=== PATIENT | male | born 1935 ===

== ENCOUNTER 2016-12-14 07:42 | Day surgery (SDC) | payer MEDICARE ==
[2016-12-14 08:08] VITALS: BMI 27.8
[2016-12-14] MEDS ORDERED: Propofol 10 mg/ml Inj (20 ML) ONE (09:14)
--- NOTE | 2016-12-14 09:14 | CP.SDSHP ---
Same Day Surgery H & P - History Proposed Procedure: COLONSCOPY Pre-Op Diagnosis: SEE NOTES - Previous Medical/Surgical History Cardiac: Hypertension Endocrine/Metabolic: Diabetes, Other Misc: Other Pain: 2.Mild Pain - Allergies Allergies: Allergies No Known Allergies Allergy (Verified 09/10/14 07:57) - Physical Exam General Appearance: N Vital Signs: Vital Signs 12/14/16 12/14/16 08:24 09:09 Temperature 97.6 F 97.6 F Pulse Rate 73 73 Respiratory 16 16 Rate Blood Pressure 132/66 132/66 O2 Sat by Pulse 97 100 Oximetry Mental Status: Alert & Oriented x3 Neuro: WNL Heart: Other Lungs: WNL GI: Other - {Optional Preform as Required} Breast: WNL Abdomen: Other Rectal: Other Integument: WNL : WNL Ortho: WNL ENT: WNL - Impression Pt. Evaluated Today:Candidate for Anesthesia & Procedure: Yes - Date & Time Time: 09:15 Short Stay Discharge - Short Stay Discharge Admitting Diagnosis/Reason for Visit: HX COLON CANCER Disposition: HOME/ ROUTINE
[2016-12-14] MEDS ORDERED: Belladonna-Phenobarbital PO ONE (09:50)
[2016-12-14 09:53] VITALS: TEMP 97
[2016-12-14 10:07] VITALS: O2SAT 99
[2016-12-14 10:41] VITALS: PULSE 60; RESP 14
[2016-12-14 10:45] VITALS: BP 129/69
== END 2016-12-14 10:40 | disposition home or self-care (01) ==
LOC: C.ENDO 07:42
PROVIDERS: ATTEND Specialist
DX: K52.9 Noninfective gastroenteritis and colitis, unspecified (principal); K64.8 Other hemorrhoids
CPT/HCPCS: 45380; 82948; 88305; J2704

== ENCOUNTER 2016-12-16 06:59 | Observation (INO) | payer MEDICARE ==
[2016-12-16 06:59] VITALS: BMI 27.8
--- NOTE | 2016-12-16 07:48 | C.PDOC ---
History Of Present Illness 81 y/o male presents to the ED for evaluation of left side rib pain s/p slip and fall yesterday. Patient states he slipped on water, and fell in the bathroom yesterday, hitting the left side of his body against the tub. States that pain became worse over night, which prompted him to visit ED this morning. Notes that pain is worse with deep breathing. Otherwise, denies any head injury , LOC, headache, dizziness, nausea, vomiting, neck pain, back pain, or any other associated symptoms at this time. - HPI Time Seen by Provider: 12/16/16 07:13 Chief Complaint (Nursing): Rib Injury History Per: Patient History/Exam Limitations: no limitations Onset/Duration Of Symptoms: Days (1) Injury Occurred (Timing): Days Ago: (1) Location Of Injury: Left: Chest (left side rib) Recent travel outside of the [place] States: No Additional History Per: Patient - Fall Fall:Prior To Injury: Slipped Past Medical History Reviewed: Historical Data, Nursing Documentation, Vital Signs Vital Signs: Last Vital Signs Temp 99.0 F 12/16/16 11:15 Pulse 63 12/16/16 11:15 Resp 17 12/16/16 11:15 BP 157/88 H 12/16/16 11:15 Pulse Ox 94 L 12/16/16 11:15 - Medical History PMH: Colonic Polyps, HTN, Hypercholesterolemia, TIA (NO RESIDUAL WEAKNESS) Denies: Chronic Kidney Disease Surgical History: Endoscopy - [facility] Procedures CLOSED ENDOSCOPIC BIOPSY OF LARGE INTESTINE (09/10/14) Family History: States: Unknown Family Hx - Social History Hx Alcohol Use: No Hx Substance Use: No - Immunization History Hx Influenza Vaccination: Yes Hx Pneumococcal Vaccination: Yes Review Of Systems Except As Marked, All Systems Reviewed And Found Negative. Constitutional: Negative for: Fever, Chills Cardiovascular: Positive for: Chest Pain (left rib pain). Negative for: Palpitations, Light Headedness Respiratory: Positive for: Shortness of Breath. Negative for: Cough Gastrointestinal: Positive for: Abdominal Pain (left side). Negative for: Nausea, Vomiting, Diarrhea, Constipation Musculoskeletal: Negative for: Neck Pain, Back Pain Skin: Negative for: Rash, Bruising Neurological: Negative for: Weakness, Numbness, Headache, Dizziness Physical Exam - Physical Exam Appears: Non-toxic, No Acute Distress Skin: Normal Color, Warm, Dry Head: Atraumatic, Normacephalic, No Tenderness Eye(s): bilateral: Normal Inspection Oral Mucosa: Moist Neck: Normal, Normal ROM, No Midline Cervical Tenderness, Supple Chest: Symmetrical, No Deformity, Tenderness (bony left rib tenderness) Cardiovascular: Rhythm Regular, No Murmur Respiratory: Normal Breath Sounds, No Accessory Muscle Use, No Rales, No Rhonchi , No Wheezing Gastrointestinal/Abdominal: Soft, Tenderness (left side), No Guarding, No Rebound Back: Normal Inspection Extremity: Bilateral: Atraumatic, Normal ROM Neurological/Psych: Oriented x3, Normal Speech, Normal Cognition ED Course And Treatment - Laboratory Results Result Diagrams: 12/16/16 07:48 12/16/16 07:48 O2 Sat by Pulse Oximetry: 94 Progress Note: Blood work, left side ribs/chest x-ray ordered and reviewed. Chest, abd, pel CT ordered to rule out any intra-abdominal pathology. Patient was treated with Toradol. On re-eval, patient is resting comfortably. Reports some improvement of pain. Medical Decision Making Medical Decision Making: Cxray and L rib xray: "Unremarkable radiographs of the chest and left ribs. No left rib fracture." 11:12AM CT shows "Visualized portions of the inferior thyroid gland appear unremarkable. The mediastinal and hilar vascular structures appear within normal limits. The heart appears within normal limits of size. Coronary artery calcifications. Mild bilateral lower lobe atelectasis. Small left pleural effusion. No pneumothorax. No suspicious pulmonary nodules measuring greater than 5 mm. Hypoattenuation of the liver compatible with hepatic steatosis. The spleen, kidneys, pancreas, adrenal glands, and gallbladder appear unremarkable. Abdominal aortic aneurysm measuring in maximal dimension 3.3 cm (AP) by 3.4 cm ( transverse) by 5.8 cm (cc). Prominent dense peripheral thrombus within the aneurysm. Suspected 5 mm penetrating ulcer (series 2, image 78). Small hiatal hernia. The stomach is nondistended. The bowel loops appear within normal limits of caliber without evidence of intestinal obstruction. Anastomotic bowel suture material involving the rectosigmoid colon. There is no definite free air. The appendix is not identified. No secondary signs of acute appendicitis. The prostate gland measures approximately 4.0 x 4.7 cm. The urinary bladder appears unremarkable. Left posterior 9 and 10th rib fractures. " Called Dr. Reyna, covering for patient's PMD. Patient is a 81 with current O2 sat of 94 with multiple rib fractures and reporting persistent pain. Will transfer to med/sx observation for pain medication and incentive spirometry Disposition - Disposition Disposition: HOSPITALIZED Disposition Time: 11:14 Condition: FAIR - Clinical Impression Clinical Impression: Ribs, multiple fractures, Fall - Scribe Statement The provider has reviewed the documentation as recorded by the Scribe Scarlet Crespo All medical record entries made by the Matthewibluanne were at my direction and personally dictated by me. I have reviewed the chart and agree that the record accurately reflects my personal performance of the history, physical exam, medical decision making, and the department course for this patient. I have also personally directed, reviewed, and agree with the discharge instructions and disposition.
[2016-12-16 07:54] LABS: BASO # 0.1 K/uL (0.0-0.2); EOS # 0.1 K/uL (0.0-0.7); EOS % 0.7 % (0.0-4.0); HEMOGLOBIN 13.3 g/dL (12.0-18.0); LYMPH # 1.3 K/uL (1.0-4.3); LYMPH % 11.8 % (20.0-40.0); MEAN CELL VOLUME 94.2 fL (80.0-94.0); MEAN CORPUSCULAR HEMOGLOBIN 31.8 pg (27.0-31.0); MEAN CORPUSCULAR HGB CONC 33.8 g/dL (33.0-37.0); MEAN PLATELET VOLUME 7.7 fL (7.2-11.7); MONO # 1.1 K/uL (0.0-0.8); NEUT # 8.3 K/uL (1.8-7.0); NEUT % 76.5 % (50.0-75.0); RBC 4.2 Mil/uL (4.40-5.90); RED CELL DISTRIBUTION WIDTH 13.1 % (11.5-14.5); WHITE BLOOD COUNT 10.9 K/uL (4.8-10.8)
--- NOTE | 2016-12-16 08:25 | RAD ---
PROCEDURE: Radiographs of the Chest and Left Ribs. HISTORY: fall with left bony rib pain COMPARISON: None available. TECHNIQUE: Frontal radiograph of the chest and multiple oblique radiographs of the left ribs were obtained. FINDINGS: LEFT RIBS: No fracture or focal lesion visualized. LUNGS: Clear. PLEURA: No pneumothorax or pleural fluid. CARDIOVASCULAR: Normal sized heart. No pulmonary vascular congestion. OTHER FINDINGS: None. IMPRESSION: Unremarkable radiographs of the chest and left ribs. No left rib fracture.
[2016-12-16 08:29] LABS: ALBUMIN 4.2 g/dL (3.5-5.0)
[2016-12-16 08:32] LABS: ALB/GLOB RATIO 1.1 (1.0-2.1); AST/SGOT 38 U/L (17-59); BLOOD UREA NITROGEN 23 mg/dL (9-20); CALCIUM 8.9 mg/dl (8.6-10.4); GFR AFRICAN-AMERICAN > 60; GFR NON-AFRICAN AMERICAN > 60
[2016-12-16 08:33] LABS: ALT/SGPT 49 U/L (21-72)
[2016-12-16] MEDS ORDERED: Iodixanol 320 MG/ML 100 ML BOTTLE IV ONE (10:07)
--- NOTE | 2016-12-16 11:05 | CT ---
CT chest, abdomen, and pelvis with IV contrast Indication: fall with L rib and L abdominal pain Technique: Contiguous axial images of the chest, abdomen, and pelvis. Coronal and Sagittal reformats generated and reviewed. This CT exam was performed using 1 or more of the following dose reduction techniques: Automated exposure control, adjustment of the MAA and/or kV according to patient size, and/or use of iterative reconstruction technique. Oral contrast was not administered. 100 mL Visipaque. Radiation dose: Total exam DLP = 708.75 MGy-cm. Comparison: None available Findings: Visualized portions of the inferior thyroid gland appear unremarkable. The mediastinal and hilar vascular structures appear within normal limits. The heart appears within normal limits of size. Coronary artery calcifications. Mild bilateral lower lobe atelectasis. Small left pleural effusion. No pneumothorax. No suspicious pulmonary nodules measuring greater than 5 mm. Hypoattenuation of the liver compatible with hepatic steatosis. The spleen, kidneys, pancreas, adrenal glands, and gallbladder appear unremarkable. Abdominal aortic aneurysm measuring in maximal dimension 3.3 cm (AP) by 3.4 cm (transverse) by 5.8 cm (cc). Prominent dense peripheral thrombus within the aneurysm. Suspected 5 mm penetrating ulcer (series 2, image 78). Small hiatal hernia. The stomach is nondistended. The bowel loops appear within normal limits of caliber without evidence of intestinal obstruction. Anastomotic bowel suture material involving the rectosigmoid colon. There is no definite free air. The appendix is not identified. No secondary signs of acute appendicitis. The prostate gland measures approximately 4.0 x 4.7 cm. The urinary bladder appears unremarkable. Left posterior 9 and 10th rib fractures. Impression: Left posterior 9 and 10th rib fractures. Hypoattenuation of the liver compatible with hepatic steatosis. Abdominal aortic aneurysm measuring in maximal dimension 3.3 cm (AP) by 3.4 cm (transverse) by 5.8 cm (cc) containing extensive dense peripheral thrombus. Suspected 5 mm penetrating ulcer. Enlarged prostate gland. Recommend correlation with PSA. Additional findings as above.
[2016-12-16] MEDS: Tramadol 25 mg PO SCH ×2 (15:49→18:32)
--- NOTE | 2016-12-16 16:46 | CP.PCM.CON ---
History of Present Illness - History of Present Illness History of Present Illness: Vascular Surgery- Dr. Arreaga 81M PMHx of DM, HTN, CT presented to the ED after a fall from the shower yesterday. Imaging revealed fracture of rib 9 and 10. Vascular surgery was consulted for incidental finding of AAA. Pt denies dizziness, blurry vision, loss of consciousness, CP, SOB, ABD pain. PMH: DM, HTN, CT, Colon Ca PSH: Left colon resection 1998, nasal polyp removal, colonoscopy 2 weeks ago negative ALL: NKDA SocialHx: denies history or current tobacco use. Review of Systems - Review of Systems All systems: reviewed and no additional remarkable complaints except Past Patient History - Past Medical History & Family History Past Medical History?: Yes - Past Social History Smoking Status: Never Smoked - CARDIAC Hx Hypercholesterolemia: Yes Hx Hypertension: Yes - PULMONARY Hx Respiratory Disorders: No - NEUROLOGICAL Hx Transient Ischemic Attacks (TIA): Yes (NO RESIDUAL WEAKNESS) - HEENT Hx HEENT Problems: No - RENAL Hx Chronic Kidney Disease: No - ENDOCRINE/METABOLIC Hx Endocrine Disorders: Yes Hx Diabetes Mellitus Type 2: Yes - HEMATOLOGICAL/ONCOLOGICAL Hx Blood Disorders: Yes Hx Cancer: Yes (COLON) - INTEGUMENTARY Hx Dermatological Problems: No - MUSCULOSKELETAL/RHEUMATOLOGICAL Hx Musculoskeletal Disorders: No Hx Falls: Yes - GASTROINTESTINAL Hx Gastrointestinal Disorders: Yes Hx Bowel Surgery: Yes (COLON RESECTION in 1998) - GENITOURINARY/GYNECOLOGICAL Hx Genitourinary Disorders: Yes Hx Prostate Problems: Yes (BPH) - PSYCHIATRIC Hx Substance Use: No - SURGICAL HISTORY Hx Surgeries: Yes (TRACHEOSTOMY) Other/Comment: 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 - ANESTHESIA Hx Anesthesia: Yes Hx Anesthesia Reactions: No Hx Malignant Hyperthermia: No Meds Allergies/Adverse Reactions: Allergies Allergy/AdvReac Type Severity Reaction Status Date / Time No Known Allergies Allergy Verified 12/16/16 07:02 - Medications Medications: Current Medications Enoxaparin Sodium (Lovenox) 40 mg SC DAILY [facility] Insulin Aspart (Novolog) 0 unit SC ACHS [facility] PRN Reason: Protocol Lisinopril (Zestril) 10 mg PO DAILY [facility] Metformin HCl (Glucophage) 500 mg PO BIDCC [facility] Morphine Sulfate (Morphine) 2 mg IVP Q4 PRN PRN Reason: Pain, severe (8-10) Rosuvastatin Calcium (Crestor) 10 mg PO HS [facility] Tamsulosin HCl (Flomax) 0.4 mg PO HS [facility] Tramadol HCl (Ultram) 25 mg PO TID [facility] Last Admin: 12/16/16 15:49 Dose: 25 mg Physical Exam - Constitutional Appears: No Acute Distress - Head Exam Head Exam: ATRAUMATIC - ENT Exam ENT Exam: Mucous Membranes Moist - Respiratory Exam Respiratory Exam: NORMAL BREATHING PATTERN. absent: Accessory Muscle Use, Rhonchi, Wheezes, Respiratory Distress - Cardiovascular Exam Cardiovascular Exam: REGULAR RHYTHM, +S1, +S2 - GI/Abdominal Exam GI & Abdominal Exam: Distended, Soft. absent: Bruit Additional comments: midline incision scar no cristina, aranda-santos, or mtz sign - Extremities Exam Extremities exam: Negative for: pedal edema, tenderness Additional comments: Femoral & Radial +2 pulses - Neurological Exam Neurological exam: Alert, Oriented x3 - Psychiatric Exam Psychiatric exam: Normal Affect - Skin Skin Exam: Normal Color Results - Vital Signs Recent Vital Signs: Last Vital Signs Temp 99.0 F 12/16/16 11:15 Pulse 63 12/16/16 11:15 Resp 17 12/16/16 11:15 BP 157/88 H 12/16/16 11:15 Pulse Ox 94 L 12/16/16 11:43 - Labs Result Diagrams: 12/16/16 07:48 12/16/16 07:48 Assessment & Plan - Assessment and Plan (Free Text) Assessment: 81M s/p mechanical fall consulted for incidental AAA finding on CT- currently asx CT: left 9, 10th rib fx. 3.3 x 3.4 cm in diameter Plan: - continue medical management for mechanical fall - No surgical intervention at this time - will re-evaluate in AM D/W Dr. Gibson Villela PGY1
[2016-12-16] MEDS: (Novolog) Insulin Aspart, Recombinant 100 u/ml 10 ml vial SC SCH ×2 (17:20→21:56)
[2016-12-16] MEDS: Morphine 4 MG/ML VIAL IVP PRN ×2 (18:10→22:10)
--- NOTE | 2016-12-16 22:04 | CP.PCM.HP ---
History of Present Illness - History of Present Illness History of Present Illness: 81 y/o hm with t2dm,htn and hyperlipidemia, he had a fall while getting out of the shower room and he slipped and his his upper back, no head injury, no dizziness, no loc, no cough, no fever Present on Admission - Present on Admission Any Indicators Present on Admission: Yes History of DVT/PE: No History of Uncontrolled Diabetes: Yes Urinary Catheter: No Decubitus Ulcer Present: No Review of Systems - EENT Nose/Mouth/Throat: Nasal Congestion - Cardiovascular Cardiovascular: Leg Edema - Gastrointestinal Gastrointestinal: Bloating - Genitourinary Genitourinary: Urinary Urgency - Musculoskeletal Musculoskeletal: Arthralgias - Neurological Neurological: Weakness - Endocrine Endocrine: Fatigue Past Patient History - Past Medical History & Family History Past Medical History?: Yes - Past Social History Smoking Status: Never Smoked - CARDIAC Hx Hypercholesterolemia: Yes Hx Hypertension: Yes - PULMONARY Hx Respiratory Disorders: No - NEUROLOGICAL Hx Transient Ischemic Attacks (TIA): Yes (NO RESIDUAL WEAKNESS) - HEENT Hx HEENT Problems: No - RENAL Hx Chronic Kidney Disease: No - ENDOCRINE/METABOLIC Hx Endocrine Disorders: Yes Hx Diabetes Mellitus Type 2: Yes - HEMATOLOGICAL/ONCOLOGICAL Hx Blood Disorders: Yes Hx Cancer: Yes (COLON) - INTEGUMENTARY Hx Dermatological Problems: No - MUSCULOSKELETAL/RHEUMATOLOGICAL Hx Musculoskeletal Disorders: No Hx Falls: Yes - GASTROINTESTINAL Hx Gastrointestinal Disorders: Yes Hx Bowel Surgery: Yes (COLON RESECTION in 1998) - GENITOURINARY/GYNECOLOGICAL Hx Genitourinary Disorders: Yes Hx Prostate Problems: Yes (BPH) - PSYCHIATRIC Hx Substance Use: No - SURGICAL HISTORY Hx Surgeries: Yes (TRACHEOSTOMY) Other/Comment: 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 - ANESTHESIA Hx Anesthesia: Yes Hx Anesthesia Reactions: No Hx Malignant Hyperthermia: No Meds Allergies/Adverse Reactions: Allergies Allergy/AdvReac Type Severity Reaction Status Date / Time No Known Allergies Allergy Verified 12/16/16 07:02 Physical Exam - Constitutional Appears: Non-toxic, No Acute Distress - Head Exam Head Exam: ATRAUMATIC, NORMAL INSPECTION, NORMOCEPHALIC - Eye Exam Eye Exam: EOMI, Normal appearance, PERRL Pupil Exam: NORMAL ACCOMODATION - ENT Exam ENT Exam: Mucous Membranes Moist, Normal Exam, Normal Oropharynx, TM's Normal Bilaterally - Neck Exam Neck exam: Positive for: Normal Inspection - Respiratory Exam Respiratory Exam: Clear to Auscultation Bilateral, NORMAL BREATHING PATTERN - Cardiovascular Exam Cardiovascular Exam: REGULAR RHYTHM, +S1, +S2 - GI/Abdominal Exam GI & Abdominal Exam: Normal Bowel Sounds, Soft - Rectal Exam Rectal Exam: NORMAL INSPECTION - Exam Exam: NORMAL INSPECTION External exam: NORMAL EXTERNAL EXAM - Back Exam Back exam: CVA tenderness (L), NORMAL INSPECTION, paraspinal tenderness - Psychiatric Exam Psychiatric exam: Normal Affect, Normal Mood - Skin Skin Exam: Intact Results - Vital Signs Recent Vital Signs: Last Vital Signs Temp 98.3 F 12/16/16 15:00 Pulse 67 12/16/16 15:00 Resp 20 12/16/16 15:00 BP 158/75 H 12/16/16 15:00 Pulse Ox 96 12/16/16 15:00 - Labs Result Diagrams: 12/16/16 07:48 12/16/16 07:48 Labs: Laboratory Results - last 24 hr 12/16/16 12/16/16 17:27 21:42 POC Glucose (mg/dL) 495 H* 394 H Assessment & Plan (1) Diabetes mellitus Status: Chronic Priority: High (2) Hypertension Status: Chronic (3) Fall Status: Acute (4) Ribs, multiple fractures Assessment and Plan: r posterior 9th and 10 rib fracture Status: Acute
[2016-12-17 08:16] LABS: BASO % 0.4 % (0.0-2.0); EOS # 0.1 K/uL (0.0-0.7); EOS % 0.9 % (0.0-4.0); HEMOGLOBIN 12.6 g/dL (12.0-18.0); LYMPH # 1.1 K/uL (1.0-4.3); LYMPH % 10.9 % (20.0-40.0); MEAN CELL VOLUME 94.2 fL (80.0-94.0); MEAN CORPUSCULAR HEMOGLOBIN 31.8 pg (27.0-31.0); MEAN CORPUSCULAR HGB CONC 33.7 g/dL (33.0-37.0); MEAN PLATELET VOLUME 7.9 fL (7.2-11.7); MONO % 9.9 % (0.0-10.0); NEUT % 77.9 % (50.0-75.0); RBC 3.95 Mil/uL (4.40-5.90); RED CELL DISTRIBUTION WIDTH 13.1 % (11.5-14.5); WHITE BLOOD COUNT 10.2 K/uL (4.8-10.8)
[2016-12-17] MEDS: (Novolog) Insulin Aspart, Recombinant 100 u/ml 10 ml vial SC SCH ×4 (08:19→21:35)
[2016-12-17 08:45] LABS: GFR AFRICAN-AMERICAN > 60; GFR NON-AFRICAN AMERICAN > 60
[2016-12-17 08:46] LABS: BLOOD UREA NITROGEN 21 mg/dL (9-20); CALCIUM 9.3 mg/dl (8.6-10.4)
[2016-12-17] MEDS: Enoxaparin 40 mg Syringe SC SCH (11:15)
[2016-12-17] MEDS ORDERED: Sod Polystyrene Sulf 15 gm/60 ml Oral Susp PO ONE (11:15)
[2016-12-17] MEDS: Tramadol 25 mg PO SCH ×3 (11:16→17:21)
--- NOTE | 2016-12-17 13:02 | CARD ---
APPROVED REPORT EKG Measurement Heart [id number] <Conclusion> Sinus rhythm with sinus arrhythmia with 1st degree AV block Left axis deviation Right bundle branch block Abnormal ECG
[2016-12-17 16:56] VITALS: RESP 20
[2016-12-17 18:13] LABS: BLOOD UREA NITROGEN 20 mg/dL (9-20); GFR AFRICAN-AMERICAN > 60; GFR NON-AFRICAN AMERICAN > 60
[2016-12-17 18:14] LABS: CALCIUM 9.3 mg/dl (8.6-10.4)
--- NOTE | 2016-12-17 22:50 | CP.PCM.PN ---
Subjective - Date & Time of Evaluation Date of Evaluation: 12/17/16 - Subjective Subjective: FALL WITH R POSTERIOR RIB FRACTUURE AND HE IS IN PAIN, HIGH K NOW AND GIVEN KAYAXALATE Objective - Vital Signs/Intake and Output Vital Signs (last 24 hours): Temp Pulse Resp BP Pulse Ox 98.1 F 81 20 166/91 H 96 12/17/16 16:00 12/17/16 16:00 12/17/16 16:00 12/17/16 16:00 12/17/16 16:00 Intake and Output: 12/17/16 12/18/16 18:59 06:59 Intake Total 400 250 Balance 400 250 - Medications Medications: Current Medications Amlodipine Besylate (Norvasc) 5 mg PO DAILY [facility] Last Admin: 12/17/16 11:16 Dose: 5 mg Enoxaparin Sodium (Lovenox) 40 mg SC DAILY [facility] Last Admin: 12/17/16 11:15 Dose: 40 mg Insulin Aspart (Novolog) 0 unit SC ACHS [facility] PRN Reason: Protocol Last Admin: 12/17/16 21:35 Dose: 2 unit Metformin HCl (Glucophage) 500 mg PO BIDCC [facility] Morphine Sulfate (Morphine) 2 mg IVP Q4 PRN PRN Reason: Pain, severe (8-10) Last Admin: 12/17/16 15:16 Dose: 2 mg Rosuvastatin Calcium (Crestor) 10 mg PO HS [facility] Last Admin: 12/17/16 21:10 Dose: 10 mg Tamsulosin HCl (Flomax) 0.4 mg PO HS [facility] Last Admin: 12/17/16 21:10 Dose: 0.4 mg Tramadol HCl (Ultram) 25 mg PO TID [facility] Last Admin: 12/17/16 17:21 Dose: 25 mg - Labs Labs: 12/17/16 07:50 12/17/16 17:59 - Constitutional Appears: Non-toxic, No Acute Distress - Head Exam Head Exam: ATRAUMATIC, NORMAL INSPECTION, NORMOCEPHALIC - Eye Exam Eye Exam: EOMI Pupil Exam: NORMAL ACCOMODATION - ENT Exam ENT Exam: Mucous Membranes Moist, Normal Exam, Normal Oropharynx, TM's Normal Bilaterally - Neck Exam Neck Exam: Normal Inspection - Respiratory Exam Respiratory Exam: Clear to Ausculation Bilateral, NORMAL BREATHING PATTERN - Cardiovascular Exam Cardiovascular Exam: REGULAR RHYTHM, +S1, +S2 - GI/Abdominal Exam GI & Abdominal Exam: Soft, Normal Bowel Sounds - Rectal Exam Rectal Exam: NORMAL INSPECTION - Extremities Exam Extremities Exam: Normal Capillary Refill, Normal Inspection - Neurological Exam Neurological Exam: CN II-XII Intact, Oriented x3 - Psychiatric Exam Psychiatric exam: Normal Affect, Normal Mood - Skin Skin Exam: Dry Assessment and Plan (1) Diabetes mellitus Status: Chronic (2) Hypertension Status: Chronic (3) Fall Status: Acute (4) Ribs, multiple fractures Status: Acute
[2016-12-18 08:02] VITALS: BP 149/83; PULSE 92; TEMP 97.6; O2SAT 93
[2016-12-18] MEDS: (Novolog) Insulin Aspart, Recombinant 100 u/ml 10 ml vial SC SCH ×2 (08:22→12:46)
[2016-12-18 08:35] LABS: BLOOD UREA NITROGEN 22 mg/dL (9-20); GFR AFRICAN-AMERICAN > 60; GFR NON-AFRICAN AMERICAN > 60
[2016-12-18] MEDS: Tramadol 25 mg PO SCH ×2 (09:00→13:12)
[2016-12-18] MEDS ORDERED: Lidocaine 5% Patch TD SCH (10:15)
--- NOTE | 2016-12-18 10:39 | RAD ---
Chest x-ray two views History: Rib fracture. Comparison: CT dated 12/16/2016 Findings: Persistent fracture deformities of multiple left lower thoracic ribs. Tortuous and ectatic aorta. Cardiomegaly. Left basilar atelectasis and or infiltrate with question trace left pleural effusion. No gross pneumothorax. Mild patchy right basilar atelectasis. Few distended loops of small bowel in the upper abdomen. Degenerative changes in the spine and shoulders. Impression: Persistent fracture deformities of multiple left lower thoracic ribs. Tortuous and ectatic aorta. Cardiomegaly. Left basilar atelectasis and or infiltrate with question trace left pleural effusion. No gross pneumothorax. Mild patchy right basilar atelectasis. Few distended loops of small bowel in the upper abdomen.
[2016-12-18] MEDS: Enoxaparin 40 mg Syringe SC SCH (10:51)
--- NOTE | 2016-12-19 21:38 | CP.PCM.DIS ---
Provider - Provider Date of Admission: 12/16/16 11:15 Attending physician: Kam Reyna MD Diagnosis - Discharge Diagnosis (1) Diabetes mellitus Status: Chronic Priority: High (2) Hypertension Status: Chronic (3) Fall Status: Acute (4) Ribs, multiple fractures Status: Acute Hospital Course - Lab Results Lab Results: Most Recent Lab Values WBC 10.2 K/uL (4.8-10.8) 12/17/16 07:50 RBC 3.95 Mil/uL (4.40-5.90) L 12/17/16 07:50 Hgb 12.6 g/dL (12.0-18.0) 12/17/16 07:50 Hct 37.2 % (35.0-51.0) 12/17/16 07:50 MCV 94.2 fL (80.0-94.0) H 12/17/16 07:50 MCH 31.8 pg (27.0-31.0) H 12/17/16 07:50 MCHC 33.7 g/dL (33.0-37.0) 12/17/16 07:50 RDW 13.1 % (11.5-14.5) 12/17/16 07:50 Plt Count 261 K/uL (130-400) 12/17/16 07:50 MPV 7.9 fL (7.2-11.7) 12/17/16 07:50 Neut % (Auto) 77.9 % (50.0-75.0) H 12/17/16 07:50 Lymph % (Auto) 10.9 % (20.0-40.0) L 12/17/16 07:50 [place] % (Auto) 9.9 % (0.0-10.0) 12/17/16 07:50 Eos % (Auto) 0.9 % (0.0-4.0) 12/17/16 07:50 Baso % (Auto) 0.4 % (0.0-2.0) 12/17/16 07:50 Neut # 8.0 K/uL (1.8-7.0) H 12/17/16 07:50 Lymph # 1.1 K/uL (1.0-4.3) 12/17/16 07:50 [place] # 1.0 K/uL (0.0-0.8) H 12/17/16 07:50 Eos # 0.1 K/uL (0.0-0.7) 12/17/16 07:50 Baso # 0.0 K/uL (0.0-0.2) 12/17/16 07:50 Sodium 134 mmol/L (132-148) 12/18/16 08:10 Potassium 5.2 mmol/L (3.6-5.2) 12/18/16 08:10 Chloride 94 mmol/L (98-107) L 12/18/16 08:10 Carbon Dioxide 29 mmol/L (22-30) 12/18/16 08:10 Anion Gap 17 (10-20) 12/18/16 08:10 BUN 22 mg/dL (9-20) H 12/18/16 08:10 Creatinine 1.0 MG/DL (0.8-1.5) 12/18/16 08:10 Est GFR ( Amer) > 60 12/18/16 08:10 Est GFR (Non-Af Amer) > 60 12/18/16 08:10 POC Glucose (mg/dL) 415 mg/dL (65-110) H* 12/18/16 11:01 Random Glucose 333 mg/dL (75-110) H 12/18/16 08:10 Calcium 9.0 mg/dl (8.6-10.4) 12/18/16 08:10 Total Bilirubin 0.9 mg/dL (0.2-1.3) 12/16/16 07:48 AST 38 U/L (17-59) 12/16/16 07:48 ALT 49 U/L (21-72) 12/16/16 07:48 Alkaline Phosphatase 67 U/L (38-126) 12/16/16 07:48 Total Protein 7.9 g/dL (6.3-8.3) 12/16/16 07:48 Albumin 4.2 g/dL (3.5-5.0) 12/16/16 07:48 Globulin 3.7 gm/dL (2.2-3.9) 12/16/16 07:48 Albumin/Globulin Ratio 1.1 (1.0-2.1) 12/16/16 07:48 - Hospital Course Hospital Course: ADMITTED WITH FALL AND HE WAS GIVEN PAIN MEDS PT AND STABILIZED AND DISCHARGED Discharge Exam - Head Exam Head Exam: ATRAUMATIC, NORMAL INSPECTION, NORMOCEPHALIC - Eye Exam Eye Exam: EOMI, Normal appearance Pupil Exam: NORMAL ACCOMODATION, PERRL - ENT Exam ENT Exam: Mucous Membranes Moist - Respiratory Exam Respiratory Exam: Rales, NORMAL BREATHING PATTERN, UNREMARKABLE - Cardiovascular Exam Cardiovascular Exam: REGULAR RHYTHM, +S1, +S2 - GI/Abdominal Exam GI & Abdominal Exam: Normal Bowel Sounds, Unremarkable - Rectal Exam Rectal Exam: NORMAL INSPECTION - Exam Exam: NORMAL INSPECTION - Extremities Exam Extremities exam: pedal edema - Neurological Exam Neurological exam: Alert, CN II-XII Intact, Normal Gait, Oriented x3, Reflexes Normal - Psychiatric Exam Psychiatric exam: Normal Affect - Skin Skin Exam: Normal Color, Warm Discharge Plan - Discharge Medications Prescriptions: Lidocaine 5% [Lidoderm] 1 ea TD DAILY #10 patch amLODIPine [Norvasc] 5 mg PO DAILY #30 tab traMADol [Ultram] 50 mg PO TID #15 tab - Follow Up Plan Condition: FAIR Disposition: HOME/ ROUTINE Instructions: Lidocaine (On the skin), Amlodipine (By mouth), Tramadol (By mouth), Rib Fracture (DC), Rib Fracture (GEN), Diabetes Mellitus Type 2 in Adults (DC), Hypertension (DC), Fall Prevention (DC) Additional Instructions: Please f/u with Dr. Reyna office in 1 week continue medication as per Med. REc. [facility] SERVICE FOR HOME PT
== END 2016-12-18 16:00 | disposition home or self-care (01) ==
LOC: C.ER 06:59 → C.9E 11:15 → C.3T 12:43
PROVIDERS: ADMIT Internal Medicine; ATTEND Internal Medicine
DX: S22.42XA Multiple fractures of ribs, left side, initial encounter for closed fracture (principal); W18.39XA Other fall on same level, initial encounter; Y93.E1 Activity, personal bathing and showering; Y92.002 Bathroom of unspecified non-institutional (private) residence as the place of occurrence of the external cause; E78.5 Hyperlipidemia, unspecified; I10 Essential (primary) hypertension; J98.11 Atelectasis
CPT/HCPCS: 36415; 71020; 71101; 71260; 74177; 80048; 80053; 82948; 85025; 93005; 96372; 96374; 96376; 97116; 97162; 99285; G0378; G8978; G8979; J1650; J1885; J2270; Q9967

== ENCOUNTER 2018-03-21 06:35 | Day surgery (SDC) | payer MEDICARE ==
[2018-03-21] MEDS ORDERED: Lactated Ringer's 1,000 ML IV ONE (08:00)
[2018-03-21] MEDS ORDERED: Propofol 10 mg/ml Inj (20 ML) ONE (08:01)
--- NOTE | 2018-03-21 08:03 | CP.SDSHP ---
Same Day Surgery H & P - History Proposed Procedure: COLONSCOPY Pre-Op Diagnosis: SEE NOTES - Previous Medical/Surgical History Cardiac: Hypertension Endocrine/Metabolic: Diabetes, Other Misc: Other Pain: 4.Moderate Pain - Allergies Allergies: Allergies No Known Allergies Allergy (Verified 12/16/16 07:02) - Physical Exam General Appearance: N Vital Signs: Vital Signs 03/21/18 06:53 Temperature 97 F L Pulse Rate 80 Respiratory 20 Rate Blood Pressure 139/67 O2 Sat by Pulse 97 Oximetry Mental Status: Alert & Oriented x3 Neuro: WNL Heart: Other Lungs: WNL GI: Other - {Optional Preform as Required} Breast: WNL Abdomen: Other Rectal: Other Integument: WNL : Other Ortho: WNL ENT: WNL - Impression Pt. Evaluated Today:Candidate for Anesthesia & Procedure: Yes - Date & Time Time: 08:02 Short Stay Discharge - Short Stay Discharge Admitting Diagnosis/Reason for Visit: H/O COLON CA Disposition: HOME/ ROUTINE
[2018-03-21] MEDS ORDERED: Belladonna-Phenobarbital PO ONE (08:45)
[2018-03-21 08:46] VITALS: TEMP 98
[2018-03-21 09:11] VITALS: O2SAT 99
[2018-03-21 09:43] VITALS: BP 128/70; PULSE 75; RESP 13
== END 2018-03-21 09:30 | disposition home or self-care (01) ==
LOC: C.ENDO 06:35
PROVIDERS: ATTEND Specialist
DX: Z12.11 Encounter for screening for malignant neoplasm of colon (principal); Z85.038 Personal history of other malignant neoplasm of large intestine; D12.2 Benign neoplasm of ascending colon; D12.0 Benign neoplasm of cecum; D12.4 Benign neoplasm of descending colon; D12.7 Benign neoplasm of rectosigmoid junction; D12.3 Benign neoplasm of transverse colon; K57.30 Diverticulosis of large intestine without perforation or abscess without bleeding
CPT/HCPCS: 45380; 82948; 88305; J2704; J7120